=== PATIENT | male | born 1950 | race Caucasian/White ===

== ENCOUNTER → 2024-11-01 11:04 | Outpatient (REF) | payer OTHER, SELFPAY | LOC: HWRAD 11:04 | PROVIDERS: ATTENDING PHYSICIAN Internal Medicine; FAMILY PHYSICIAN Family Medicine | DX: Z87.01 Personal history of pneumonia (recurrent) (principal) | CPT/HCPCS: 71046 ==

== ENCOUNTER → 2025-01-16 14:59 | Outpatient (REF) | payer OTHER, SELFPAY | LOC: DHSLP 14:59 | PROVIDERS: ATTENDING PHYSICIAN Internal Medicine; FAMILY PHYSICIAN Family Medicine | DX: G47.33 Obstructive sleep apnea (adult) (pediatric) (principal); R09.02 Hypoxemia | CPT/HCPCS: 95800 ==

== ENCOUNTER → 2025-06-07 07:17 | Outpatient (REF) | payer OTHER, SELFPAY | LOC: PAVMRI 07:17 | PROVIDERS: ATTENDING PHYSICIAN Specialist; FAMILY PHYSICIAN Family Medicine | DX: R26.81 Unsteadiness on feet (principal) | CPT/HCPCS: 70551 ==